=== PATIENT | female | born 1935 | race Caucasian/White ===

== ENCOUNTER 2017-09-01 18:17 | Emergency (ER) | payer MEDICARE, OTHER ==
[2017-09-01 18:31] VITALS: BP 134/46
[2017-09-01] MEDS ORDERED: OXYCODONE HCL IR 5 MG TABLET PO ONE (19:01)
[2017-09-01] MEDS ORDERED: DIPH/PERTUSS(ACELL)/TETANUS VAC/PF 0.5 ML SYR (>=10YO) IM ONE (19:10)
[2017-09-01] MEDS ORDERED: ACETAMINOPHEN 325 MG TABLET PO ONE (19:10)
--- NOTE | 2017-09-01 19:15 | RADIOLOGY REPORT (SQ) ---
EXAM DESCRIPTION: ELBOW RIGHT OVER 2 VIEWS COMPLETED DATE/TIME: 09/01/2017 6:57 pm REASON FOR STUDY: fall COMPARISON: None. NUMBER OF VIEWS: Three views TECHNIQUE: AP, lateral, and oblique radiographic images acquired of the right elbow. LIMITATIONS: None. FINDINGS: MINERALIZATION: Normal. BONES: There is a comminuted supracondylar fracture of the distal humerus with some overriding of the fracture fragments. JOINT: Joint effusion is identified. SOFT TISSUES: Soft tissue swelling is identified. OTHER: No other significant finding. IMPRESSION: Comminuted supracondylar fracture of the distal humerus. TECHNICAL DOCUMENTATION: JOB ID: [id number] [employer]- All Rights Reserved
--- NOTE | 2017-09-01 19:16 | ER Document Report ---
ED General - General Chief Complaint: Arm Injury Stated Complaint: FALL/RIGHT ARM INJURY Time Seen by Provider: 09/01/17 18:21 Notes: Patient is an 82-year-old female who presents after a mechanical fall off of a stool. She landed onto her right elbow and developed immediate, severe, throbbing pain to the affected area. Any attempt at moving worsens the pain. She has not tried nothing for improvement of the pain but states when she sits still it does not hurt as badly. She has no history of prior injury to this extremity. She denies hitting her head or neck today. Denies any additional injuries or areas of complaint. She does arrive by EMS. She has not seen her primary care doctor regarding today's concerns. TRAVEL OUTSIDE OF THE [place] IN LAST 30 DAYS: No - Related Data Allergies/Adverse Reactions: amoxicillin [From Augmentin] Allergy (Verified 09/01/17 18:25) clavulanic acid [From Augmentin] Allergy (Verified 09/01/17 18:25) hydrocodone bitartrate [From Vicodin] Allergy (Verified 09/01/17 18:25) shellfish derived Allergy (Verified 09/01/17 18:25) Past Medical History - General Information source: Patient - Social History Smoking Status: Never Smoker Chew tobacco use (# tins/day): No Frequency of alcohol use: None Drug Abuse: None Lives with: Family Family History: Reviewed & Not Pertinent Patient has suicidal ideation: No Patient has homicidal ideation: No - Past Medical History Cardiac Medical History: Reports: Hx Hypercholesterolemia, Hx Hypertension Renal/ Medical History: Denies: Hx Peritoneal Dialysis Musculoskeltal Medical History: Reports Hx Arthritis Past Surgical History: Reports: Hx Cholecystectomy, Hx Hysterectomy, Hx Orthopedic Surgery - left tkr, right shoulder, feet, spinal fusion, Hx Tonsillectomy, Hx Tubal Ligation, Hx Vascular Surgery - cataract - Immunizations Hx Diphtheria, Pertussis, Tetanus Vaccination: Yes Review of Systems - Review of Systems Notes: Constitutional: Negative for fever. Eyes: Negative for visual changes. ENT: Negative for facial injury Cardiovascular: Negative for chest injury. Respiratory: Negative for shortness of breath. Gastrointestinal: Negative for abdominal injury. Genitourinary: Negative for genital injury Musculoskeletal: Positive right elbow injury Skin: Negative for laceration/abrasions. Neurological: Negative for head injury. Physical Exam - Vital signs Vitals: Temp Pulse Resp BP Pulse Ox 97.7 F 75 18 134/46 H 95 09/01/17 18:20 09/01/17 18:20 09/01/17 18:20 09/01/17 18:20 09/01/17 18:20 Interpretation: Normal Notes: PHYSICAL EXAMINATION: GENERAL: Well-appearing, no acute distress. HEAD: Atraumatic, normocephalic. EYES: Pupils equal round and reactive to light, extraocular movements intact, sclera anicteric, conjunctiva are normal. ENT: nares patent, no oral pharyngeal trauma. No hemotympanum, no Zapata's sign , no raccoon eyes. NECK: No midline cervical spine tenderness. Patient able to move their head to 45 bilaterally without any discomfort. LUNGS: Breath sounds clear to auscultation bilaterally and equal. No wheezes rales or rhonchi. HEART: Regular rate and rhythm without murmurs. CHEST WALL: No ecchymosis over the chest wall. ABDOMEN: Soft, nontender, normoactive bowel sounds. No guarding, no rebound. No abdominal bruising EXTREMITIES: Swelling and apparent deformity just above the level of the right elbow. Unable to perform range of motion with the right proximal upper extremity. Full breaker hand strength bilaterally. RMU motor and sensory distribution is intact bilaterally. BACK: No midline spinal tenderness, step-offs, or deformities. NEUROLOGICAL: Face symmetric. Tongue protrudes midline. Extraocular motions intact. Pupils are 2 mm and equally reactive. Normal speech, normal gait. 5 out of 5 strength in both the distal and proximal upper and lower extremities bilaterally. Sensation is grossly intact throughout. Finger to nose testing normal. Pronator drift normal. PSYCH: Normal mood, normal affect. SKIN: Warm, Dry, normal turgor, skin avulsion to the right posterior elbow Course - Re-evaluation Re-evalutation: 09/01/17 19:12 Patient presents after a mechanical fall off of a stool landing on her right arm and sustaining a distal humeral fracture that is comminuted minimally displaced. RMU motor and sensory distribution is intact in the bilateral upper extremities. Full breaker hand strength bilaterally. 2+ radial and ulnar pulse on the right. Patient is very clear that she did not hit her head or neck today. She denies any additional trauma or pain to any other location of her body. The remainder of her examination is otherwise unremarkable. She is in place in a posterior long-arm splint for stabilization in a sling. Tylenol has been recommended for pain control. A small amount of oxycodone tablets have been prescribed as needed for pain that is not controlled by Tylenol. Her tetanus has been updated due to a small skin avulsion on the posterior right elbow. At this time will discharge with return precautions and follow-up recommendations. Verbal discharge instructions given a the bedside and opportunity for questions given. Medication warnings reviewed. Patient is in agreement with this plan and has verbalized understanding of return precautions and the need for orthopedic surgery follow-up in the next 24-72 hours. - Vital Signs Vital signs: Temp Pulse Resp BP Pulse Ox 97.7 F 75 18 134/46 H 95 09/01/17 18:20 09/01/17 18:20 09/01/17 18:20 09/01/17 18:20 09/01/17 18:20 - Diagnostic Test Radiology reviewed: Image reviewed, Reports reviewed Radiology results interpreted by me: 09/01/17 19:14 Right elbow x-ray: Distal humeral comminuted fracture with moderate displacement Discharge - Discharge Clinical Impression: Skin avulsion Fracture of distal end of right humerus Qualifiers: Encounter type: initial encounter Fracture type: closed Fracture morphology: unspecified fracture morphology Qualified Code(s): S42.401A - Unspecified fracture of lower end of right humerus, initial encounter for closed fracture Fall Qualifiers: Encounter type: initial encounter Qualified Code(s): W19.XXXA - Unspecified fall, initial encounter Condition: Stable Disposition: HOME, SELF-CARE Additional Instructions: You broke the distal end of your humerus. You have been placed in a splint that she need to keep on until you follow-up with orthopedic surgery. Please do so within the next 1 week. For your pain: Take acetaminophen 1000 mg every 6 hours as needed for pain. If this does not control your pain you may take 2.5 -5 mg of oxycodone every 4 hours as needed. Please be very careful about using the oxycodone and only use this for severe pain. If you do end up needing oxycodone, please be sure to take a laxative such as senna or MiraLAX Prescriptions: Oxycodone HCl [Oxycontin Ir 5 Mg Tablet] 0.5 - 1 tab PO Q4H PRN #6 tablet PRN Reason: For Pain Referrals: Basia STILL MD [Primary Care Provider] - Follow up as needed YASMIN TURNER MD [ACTIVE STAFF] - Follow up in 3-5 days
== END 2017-09-01 20:37 | disposition home or self-care (01) ==
LOC: ER 18:17
PROC: 2W38X1Z Immobilization of Right Upper Extremity using Splint (ICD-10-PCS; principal; 2017-09-01)
DX: S42.401A Unspecified fracture of lower end of right humerus, initial encounter for closed fracture (principal); S41.101A Unspecified open wound of right upper arm, initial encounter; W07.XXXA Fall from chair, initial encounter
CPT/HCPCS: 99283; 73080; 29105; A9270

== ENCOUNTER 2017-09-17 05:54 | Inpatient (IN) | payer MEDICARE ==
[2017-09-16 12:27] LABS: ABSOLUTE EOSINOPHILS # (AUTO) 0.3 10^3/uL (0.0-0.6); ABSOLUTE LYMPHOCYTES (AUTO) 1.2 10^3/uL (0.5-4.7); ABSOLUTE MONOCYTES (AUTO) 1.3 10^3/uL (0.1-1.4); ABSOLUTE NEUT (AUTO) 5.5 10^3/uL (1.7-8.2); BASOPHILS % (AUTO) 0.6 % (0-2); EOSINOPHILS % (AUTO) 3.4 % (0-6); HEMATOCRIT 37.5 % (36.0-47.0); HEMOGLOBIN 13.1 g/dL (12.0-15.5); HGB HCT DIFFERENCE 1.8; LYMPHOCYTES % (AUTO) 14.4 % (13-45); MEAN CORPUSCULAR HEMOGLOBIN 29.4 pg (27.0-33.4); MEAN CORPUSCULAR HGB CONC 34.9 g/dL (32.0-36.0); MEAN CORPUSCULAR VOLUME 84 fl (80-97); MONOCYTES % (AUTO) 15.5 % (3-13); RED BLOOD COUNT 4.44 10^6/uL (3.72-5.28); RED CELL DISTRIBUTION WIDTH 14.1 % (11.5-14.0); SEGMENTED NEUTROPHILS % (AUTO) 66.1 % (42-78); WHITE BLOOD COUNT 8.4 10^3/uL (4.0-10.5)
[2017-09-16 12:27] LABS: AMORPHOUS SEDIMENT,URINE TRACE /HPF; APPEARANCE,URINE SLIGHTLY-CLOUDY; BILIRUBIN,URINE NEGATIVE (NEGATIVE); CALCIUM OXALATE CRYSTALS,URINE TOO NUMEROUS TO CNT /HPF; GLUCOSE, URINE NEGATIVE (NEGATIVE); KETONES,URINE NEGATIVE (NEGATIVE); LEUKOCYTE ESTERASE,URINE TRACE (NEGATIVE); NITRITE,URINE NEGATIVE (NEGATIVE); PROTEIN,URINE NEGATIVE (NEGATIVE); URINE SPECIFIC GRAVITY 1.029; UROBILINOGEN,URINE NEGATIVE mg/dL (<2.0)
[2017-09-16 12:53] LABS: ANION GAP 11 (5-19); BLOOD UREA NITROGEN 17 mg/dL (7-20); CALCIUM 9.6 mg/dL (8.4-10.2); CARBON DIOXIDE 29 mmol/L (22-30); CHLORIDE 101 mmol/L (98-107); CREATININE RESULT 0.66 mg/dL (0.52-1.25); GLUCOSE 80 mg/dL (75-110); POTASSIUM 4.8 mmol/L (3.6-5.0)
--- NOTE | 2017-09-16 13:15 | RADIOLOGY REPORT (SQ) ---
EXAM DESCRIPTION: CHEST PA/LATERAL COMPLETED DATE/TIME: 09/16/2017 1:00 pm REASON FOR STUDY: PRE-OP COMPARISON: Three-way abdomen series [id number] EXAM PARAMETERS: NUMBER OF VIEWS: two views TECHNIQUE: Digital Frontal and Lateral radiographic views of the chest acquired. RADIATION DOSE: NA LIMITATIONS: none FINDINGS: LUNGS AND PLEURA: Bandlike scarring or atelectasis at the right lung base. Lungs are othe rwise well inflated and clear. MEDIASTINUM AND HILAR STRUCTURES: No masses or contour abnormalities. HEART AND VASCULAR STRUCTURES: Heart normal size. No evidence for failure. BONES: Osteoporotic. 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 Advanced osteoarthritis left shoulder. Lumbar kyphoplast y at the bottom edge of the field of view. HARDWARE: Right shoulder replacement. Clips right upper quadrant post cholecystectomy. OTHER: No other significant finding. IMPRESSION: Bandlike atelectasis or scarring right lung base TECHNICAL DOCUMENTATION: JOB ID: [id number] [employer]- All Rights Reserved
[2017-09-16 14:09] LABS: PROTHROMBIN TIME 12.9 SEC (11.4-15.4)
[2017-09-16 14:10] LABS: PARTIAL THROMBOPLASTIN TIME 33.3 SEC (23.5-35.8)
--- NOTE | 2017-09-16 14:10 | EKG REPORT ---
SEVERITY:- BORDERLINE ECG - SINUS RHYTHM PROBABLE LEFT ATRIAL ABNORMALITY : Confirmed by: Ozzie Anguiano MD 16-Sep-2017 14:10:02
[~2017-09-17 05:54] MED LIST: CEFAZOLIN 2 GM/D5W RTU 2 GM/50 ML RTUPB IV PRN; LACTATED RINGERS 1000 ML IV PRN; LIDOCAINE 0.5% INJ-PF (5 MG/ML) 50 ML SDV SUBCUT PRN
[2017-09-17] MEDS ORDERED: FENTANYL CITRATE INJ/PF 100 MCG/2 ML AMPUL ONE ×2 (07:13)
[2017-09-17] MEDS ORDERED: HYDROMORPHONE HCL INJ/PF 2 MG/ML AMPULE ONE (07:13)
[2017-09-17] MEDS ORDERED: MIDAZOLAM 2 MG/2 ML INJ ONE (07:14)
[2017-09-17] MEDS ORDERED: ACETAMINOPHEN 0 ML IV ONE (07:14)
[2017-09-17] MEDS ORDERED: PROPOFOL INJ 200 MG/20 ML VIAL IV ONE ×3 (07:14→10:09)
[2017-09-17] MEDS ORDERED: IBUPROFEN INJ 800 MG/8 ML VIAL IV ONE (07:14)
[2017-09-17] MEDS ORDERED: CLINDAMYCIN 600 MG/D5W RTU 600 MG/50 ML RTUPB IV ONE (07:23)
[2017-09-17] MEDS ORDERED: ALBUTEROL SULFATE 0.083% NEB 2.5 MG/3 ML AMPUL NEB ONE (07:26)
[2017-09-17] MEDS ORDERED: ROPIVACAINE HCL 0.5% INJ/PF (5 MG/1 ML) 30 ML SDV ONE ×2 (07:31→08:11)
[2017-09-17] MEDS ORDERED: LIDOCAINE 2% INJ (20 MG/ML) 20 ML MDV ONE (07:31)
[2017-09-17] MEDS ORDERED: LIDOCAINE 1%/EPINEPHRINE INJ 20 ML VIAL ONE (07:31)
[2017-09-17] MEDS ORDERED: MEPERIDINE HCL/PF INJ 25 MG/1 ML DISP.SYRIN IV PRN (08:44)
[2017-09-17] MEDS ORDERED: MORPHINE SULFATE 10 MG/ML INJ IV PRN (08:44)
[2017-09-17] MEDS ORDERED: FENTANYL CITRATE INJ/PF 100 MCG/2 ML AMPUL IV PRN ×2 (08:44)
--- NOTE | 2017-09-17 11:57 | Operative Report ---
Operative Report DATE OF SURGERY: 09/17/17 PREOPERATIVE DIAGNOSIS: Right Intra-articular Distal Humerus Fracture POSTOPERATIVE DIAGNOSIS: Right Intra-articular Distal Humerus Fracture OPERATION: ORIF Right Intra-articular Distal Humerus Fracture SURGEON: IVANNA RBOWN ANESTHESIA: GA COMPLICATIONS: None ESTIMATED BLOOD LOSS: 200cc PROCEDURE: Indication for above procedure: 82-year-old female who sustained a fall onto her right elbow. Patient was seen in the emergency room where x-rays demonstrated a intra-articular fracture patient was placed in a splint. She subsequently was sent to [facility] and a CT scan order demonstrating comminuted intra-articular distal humerus fracture. We discussed treatment options including discussion with the family which included operative versus nonoperative intervention. Risks and benefits were explained to the patient and family risks including neurovascular risk, postoperative pain , postoperative stiffness, nonunion, hardware failure and any unforeseen complication patient verbalized understanding consented for the procedure. Procedure In Detail: Patient was seen and evaluated in the preoperative holding area. The RIGHT upper extremity was initialized and marked. Patient received 600 mg of clindamycin IV for bacterial prophylaxis. Patient was seen and evaluated by anesthesia and a right regional block performed. Patient was taken back to the operative room where transferred to the operative table and placed under general anesthesia. Once they were adequately anesthetized a surgical team debriefing was performed ensuring all instrumentation was available, the surgical procedure was discussed with possible concerns reviewed. The upper extremity was prepped with ChloraPrep and draped in a sterile fashion. A timeout was done identifying correct patient, procedure and extremity everyone in attendance agree with this and verbalized no concerns. The a sterile tourniquet was placed in the extremity was exsanguinated the tourniquet was inflated to 250 mmHg. Longitudinal skin incision was made with a curved around the olecranon medially. Blunt dissection was performed proximally identifying the ulnar nerve as it exited the triceps fascia. The ulnar nerve was then neurolysed to the level of Machuca's ligaments. A branch of the medial antebrachial cutaneous nerve was identified and retracted. The ulnar nerve was released including the FCU aponeurosis once freed of all overlying soft tissue a vessel loop was placed around the ulnar nerve. Vasculature of the ulnar nerve remained in continuity proximally and the distal branches were then coagulated with cautery to allow transposition of the ulnar nerve and a subcutaneous pocket anteriorly. Once this was complete a mann-tricipital approach was performed to expose the medial and lateral fracture fragments. The radial nerve laterally was identified just anterior to the lateral intermuscular septum but further neuro lysis was not performed. There was intervening healing of the fracture with fibrous tissue. The fibrous tissue was carefully excised and the early healing between the fracture fragments was removed until good cancellus bone was encountered. A small portion of soft tissue over the lateral epicondyle and medial epicondyles was elevated to allow placement of parallel plates. There was significant comminution at the level of the olecranon fossa and the intervening bone was excised. The fracture fragments were freed of soft tissue. The fracture fragments were then freed reduced under direct visualization and held together with 3 0.62 K wires. C-arm fluoroscopy was obtained confirming acceptable articular reduction and samaritan of alignment. I then placed a harshly threaded 4.0 mm cannulated screw perpendicular to the fracture was provided interfragmentary compression. Once I had the distal 2 fracture fragments secured I proceeded with fixation to the humeral shaft. Due to the patient's combination the shaft was reduced to the articular fragments but compressed to allow for better bone healing. I secured the distal segment to the proximal segment with an oblique K wire. A Yamel lateral plate was then placed and secured proximally and distally with K wires and a reduction tenaculum. C-arm fluoroscopy was obtained confirming appropriate placement of my lateral plate. It was then first secured distally with a 3.5 mm compression screw bringing the plate successfully down to bone. The additional distal holes were then secured with locking screws. During drilling I confirmed the screws were in an anterior direction to avoid impingement at the olecranon fossa. I then turned my attention to fixation proximally. The plate was secured proximally with reduction tenaculum ensuring that it was freed of the adjacent radial nerve to avoid impingement. The radial nerve was protected during fixation of the plate proximally. I then fixated the plate with 3.5 mm cortex screws and completed fixation with the appropriate size locking screw. C-arm fluoroscopy was then obtained AP and lateral projections demonstrated appropriate placement of my plate with reduction of the articular surface with some compression of the articular distal fragments to the proximal humeral shaft. I then turned my attention to the medial aspect. A Yamel medial plate was then placed and secured proximally just with K wires and a reduction tenaculum. The ulnar nerve was protected during placement of the plate. C-arm fluoroscopy confirmed appropriate placement of my plate a 3.5 millimeter screw was then placed distally to secure the plate down to bone. Additional locking screws were then placed distally avoiding trajectory within the olecranon fossa under direct visualization and anteriorly through the articular surface. I then completed fixation proximally securing the plate with a reduction tenaculum and a bicortical 3.5 millimeter screw was placed which actually came through the oblong hole laterally. An additional cortical screw was placed proximally and I completed fixation with 2 additional locking screws. There was excellent stability of the fracture. Patient had full passive flexion with extension to 15 without evidence of impingement at the olecranon fossa. No crepitus with range of motion was appreciated. Final C- arm fluoroscopy was obtained demonstrating no evidence of intra-articular screw penetration with reduction of the fracture in acceptable position. The tourniquet was then deflated. Any peripheral bleeding was then coagulated with cautery. The wound was copiously irrigated with normal saline. The ulnar nerve was transposed anteriorly and secured in a subcutaneous sling with 3-0 Monocryl suture. The triceps fascia to the lateral intramuscular septum was secured with interrupted 0 Vicryl suture avoiding compression of the radial nerve. The wound was once again irrigated with normal saline. Subcutaneous tissues were closed with interrupted 3-0 Monocryl suture. Skin was closed with sonny. Was dressed with Acticoat patient was placed in a posterior plaster splint with the elbow at 60 of flexion. Sponge counts, instrument counts, needle counts counts were correct. Patient was then awoken from anesthesia. Transferred from the operating room table to the operating room stretcher. There was no intraoperative complications patient tolerated procedure well stable to PACU. Postoperative plan: Patient will follow-up the office in 2 weeks at which point we will obtain radiographs and patient will be set up for occupational therapy to begin gentle range of motion and be fitted 30 thermoplastic posterior splint for protection.
[2017-09-17] MEDS ORDERED: ONDANSETRON 4 MG TAB.RAPDIS PO PRN (12:06)
[2017-09-17] MEDS ORDERED: PROMETHAZINE HCL 25 MG TABLET PO PRN (12:06)
[2017-09-17] MEDS: CLINDAMYCIN 600 MG/D5W RTU 600 MG/50 ML RTUPB IV SCH ×2 (14:41→21:33)
[2017-09-17] MEDS ORDERED: LIDOCAINE 2% INJ-PF (20 MG/ML) 10 ML AMPUL ONE (15:40)
[2017-09-17] MEDS ORDERED: ONDANSETRON HCL INJ/PF 4 MG/2 ML SDV ONE (15:40)
--- NOTE | 2017-09-17 16:58 | RADIOLOGY REPORT (SQ) ---
EXAM DESCRIPTION: NO CHG FLUORO; ELBOW RIGHT OVER 2 VIEWS COMPLETED DATE/TIME: 09/17/2017 3:56 pm REASON FOR STUDY: ORIF RT ELBOW ASSISTED WITH FLUORO IN OR COMPARISON: 09/01/2017 FLUOROSCOPY TIME: 1.4 minutes 7 Images saved to PACS LIMITATIONS: None. PROCEDURE: Open reduction internal fixation of distal humeral fracture. FINDINGS: Multiple no images document placement of a compression plate bilaterally on distal humerus with multiple screws. IMPRESSION: ORIF distal humeral fracture. Refer to operative report for further detail. COMMENT: PQRS 6045F: Fluoroscopy time of the procedure is documented in the report. TECHNICAL DOCUMENTATION: JOB ID: [id number] [employer]- All Rights Reserved
--- NOTE | 2017-09-17 16:58 | RADIOLOGY REPORT (SQ) ---
EXAM DESCRIPTION: NO CHG FLUORO; ELBOW RIGHT OVER 2 VIEWS COMPLETED DATE/TIME: 09/17/2017 3:56 pm REASON FOR STUDY: ORIF RT ELBOW ASSISTED WITH FLUORO IN OR COMPARISON: 09/01/2017 FLUOROSCOPY TIME: 1.4 minutes 7 Images saved to PACS LIMITATIONS: None. PROCEDURE: Open reduction internal fixation of distal humeral fracture. FINDINGS: Multiple no images document placement of a compression plate bilaterally on distal humerus with multiple screws. IMPRESSION: ORIF distal humeral fracture. Refer to operative report for further detail. COMMENT: PQRS 6045F: Fluoroscopy time of the procedure is documented in the report. TECHNICAL DOCUMENTATION: JOB ID: [id number] [employer]- All Rights Reserved
[2017-09-17] MEDS: MORPHINE SULFATE 10 MG/ML INJ IV PRN ×2 (17:01→21:08)
[2017-09-17] MEDS ORDERED: IBUPROFEN INJ 800 MG/8 ML VIAL IV PRN (17:51)
[2017-09-17] MEDS: TRAMADOL HCL 50 MG TABLET PO PRN (18:23)
[2017-09-17] MEDS: RIVAROXABAN 10 MG TABLET PO SCH (21:33)
[2017-09-18] MEDS: CLINDAMYCIN 600 MG/D5W RTU 600 MG/50 ML RTUPB IV SCH (05:16)
[2017-09-18] MEDS: TRAMADOL HCL 50 MG TABLET PO PRN ×2 (06:35→17:47)
[2017-09-18 07:05] LABS: HEMATOCRIT 29.1 % (36.0-47.0); HGB HCT DIFFERENCE 0.9; MEAN CORPUSCULAR HEMOGLOBIN 29.1 pg (27.0-33.4); MEAN CORPUSCULAR HGB CONC 34.5 g/dL (32.0-36.0); MEAN CORPUSCULAR VOLUME 84 fl (80-97); RED BLOOD COUNT 3.44 10^6/uL (3.72-5.28); RED CELL DISTRIBUTION WIDTH 14.1 % (11.5-14.0); WHITE BLOOD COUNT 13.6 10^3/uL (4.0-10.5)
--- NOTE | 2017-09-18 08:41 | PDOC PROGRESS REPORT ---
Subjective Progress Note for:: 09/18/17 Subjective:: 82-year-old white female one day status post open reduction internal fixation of right distal humerus fracture. Patient is lying in hospital bed and states that her pain was not well-controlled last night. She requested her as needed morphine be added back and this was agreed upon. No other complaints otherwise per Physical Exam Vital Signs: Temp Pulse Resp BP Pulse Ox 36.8 C 90 18 128/60 H 97 09/18/17 04:02 09/18/17 04:02 09/18/17 04:02 09/18/17 04:02 09/18/17 04:02 Intake & Output 09/17/17 09/18/17 09/19/17 06:59 06:59 06:59 Intake Total 0 2220 Output Total 1200 Balance 0 1020 Weight 54.3 kg General appearance: PRESENT: no acute distress, well-developed, well-nourished Head exam: PRESENT: atraumatic, normocephalic Pulses: PRESENT: normal radial pulses, normal dorsalis pedis pul, +2 pedal pulses bilateral Vascular exam: PRESENT: normal capillary refill Additional comments: Patient's right upper extremity is in long-arm splint elevated on 2 pillows. Her postoperative compression dressing is in place and this is clean dry and intact. She has brisk capillary refill to fingers of bilateral upper extremities as well as posterior radial pulses. She has minimal manual edema, her sensory motor functions are intact and her distal neurovascular exam is intact. She has very limited range of motion of the right upper extremity due to pain on initiation of motion. Additional comments: As noted patient has limited range of motion of the right upper extremity due to pain on initiation of motion. I believe it would be helpful for occupational therapy to work with patient on better mobilization and strength of the right upper extremity. Neurological exam: PRESENT: alert, awake, oriented to person, oriented to place , oriented to time, oriented to situation, CN II-XII grossly intact. ABSENT: motor sensory deficit Psychiatric exam: PRESENT: appropriate affect, normal mood. ABSENT: homicidal ideation, suicidal ideation Skin exam: PRESENT: dry, intact, warm. ABSENT: cyanosis, rash Results Laboratory Results: 09/18/17 06:30 09/16/17 11:43 09/18/17 06:30 WBC 13.6 H RBC 3.44 L Hgb 10.0 L D Hct 29.1 L MCV 84 MCH 29.1 MCHC 34.5 RDW 14.1 H Plt Count 490 H Impressions: Chest X-Ray 09/16/17 12:34 IMPRESSION: Bandlike atelectasis or scarring right lung base Elbow X-Ray 09/17/17 00:00 IMPRESSION: ORIF distal humeral fracture. Refer to operative report for further detail. Fluoroscopy 09/17/17 00:00 IMPRESSION: ORIF distal humeral fracture. Refer to operative report for further detail. Assessment & Plan - Diagnosis (1) Humerus distal fracture Qualifiers: Encounter type: subsequent encounter Fracture type: closed Fracture morphology: other fracture Laterality: right Is this a current diagnosis for this admission?: Yes - Plan Summary Plan Summary: 82-year-old white female one day status post open reduction internal fixation of distal humeral fracture. Patient is having trouble with pain control and it was discussed and decided the patient's morphine would be restarted as needed for pain. She also continue IV calor and tramadol. Patient seemed agreeable to this plan and hopeful that it would facilitate better pain relief. She maintains limited strength range of motion of the right upper extremity due to pain with initiation of motion. Hopefully with better pain control she will increase strength and range of motion of the right upper extremity and possibly a consult from occupational therapy would be beneficial as well. She will likely be discharged to a shelter facility later in the week.
[2017-09-18] MEDS ORDERED: DOCUSATE SODIUM 100 MG/10 ML UDC PO SCH (10:00)
[2017-09-18] MEDS: DOCUSATE SODIUM 100 MG CAPSULE PO SCH (10:09)
[2017-09-18] MEDS: RIVAROXABAN 10 MG TABLET PO SCH (22:12)
--- NOTE | 2017-09-19 07:09 | PDOC PROGRESS REPORT ---
Subjective Progress Note for:: 09/19/17 Subjective:: 82-year-old white female 2 days status post open reduction internal fixation of distal right humerus fracture. Patient reports she is much more comfortable this morning and her demeanor is much different. She is calm and has no complaints of pain. Physical Exam Vital Signs: Temp Pulse Resp BP Pulse Ox 36.7 C 80 16 133/65 H 95 09/19/17 04:08 09/19/17 04:08 09/19/17 04:08 09/19/17 04:08 09/19/17 04:08 Intake & Output 09/18/17 09/19/17 09/20/17 06:59 06:59 06:59 Intake Total 2220 790 Output Total 1200 Balance 1020 790 General appearance: PRESENT: no acute distress, well-developed, well-nourished Head exam: PRESENT: atraumatic, normocephalic Pulses: PRESENT: normal dorsalis pedis pul, +2 pedal pulses bilateral Vascular exam: PRESENT: normal capillary refill Additional comments: Patient's right upper extremity remains immobilized in a long-arm splint. Patient exhibits increased strength and range of motion of the right upper extremity when compared to yesterday morning. She states it is not as painful to move today. She has brisk capillary refill to fingers of bilateral upper extremities and her distal neurovascular exam is intact. Musculoskeletal exam: PRESENT: ambulatory Additional comments: As stated previously I believe occupational therapy would be beneficial for the patient to increase strength and range of motion of the right upper extremity. She has not yet seen services for occupational therapy. Neurological exam: PRESENT: alert, awake, oriented to person, oriented to place , oriented to time, oriented to situation, CN II-XII grossly intact. ABSENT: motor sensory deficit Additional comments: Patient did question what day it was, and when she was informed that it was she did not seem confused. Psychiatric exam: PRESENT: appropriate affect, normal mood. ABSENT: homicidal ideation, suicidal ideation Skin exam: PRESENT: dry, intact, warm. ABSENT: cyanosis, rash Results Laboratory Results: 09/18/17 06:30 09/16/17 11:43 09/18/17 06:30 WBC 13.6 H RBC 3.44 L Hgb 10.0 L D Hct 29.1 L MCV 84 MCH 29.1 MCHC 34.5 RDW 14.1 H Plt Count 490 H Impressions: Chest X-Ray 09/16/17 12:34 IMPRESSION: Bandlike atelectasis or scarring right lung base Elbow X-Ray 09/17/17 00:00 IMPRESSION: ORIF distal humeral fracture. Refer to operative report for further detail. Fluoroscopy 09/17/17 00:00 IMPRESSION: ORIF distal humeral fracture. Refer to operative report for further detail. Assessment & Plan - Diagnosis (1) Humerus distal fracture Qualifiers: Encounter type: subsequent encounter Fracture type: closed Fracture morphology: other fracture Laterality: right Is this a current diagnosis for this admission?: Yes - Plan Summary Plan Summary: 82-year-old white female today status post open reduction internal fixation for right distal humerus fracture. Patient's pain is much better controlled and is very pleasant when answering questions this morning this was not the case yesterday as she was experiencing much greater pain. We will continue her pain regiment as is with IV calor, tramadol and morphine as needed for pain. I do believe patient would benefit from occupational therapy services to improve strength and range of motion of the right upper extremity. She will be seen by Dr. verma on September 20 and arrangements for discharge to a longterm facility will be made at that time.
[2017-09-19] MEDS: DOCUSATE SODIUM 100 MG CAPSULE PO SCH (10:02)
[2017-09-19] MEDS ORDERED: ONDANSETRON 4 MG TAB.RAPDIS PO PRN (10:30)
[2017-09-19] MEDS: TRAMADOL HCL 50 MG TABLET PO PRN ×2 (13:20→22:00)
[2017-09-19] MEDS: RIVAROXABAN 10 MG TABLET PO SCH (22:00)
--- NOTE | 2017-09-20 07:35 | PDOC PROGRESS REPORT ---
Subjective Progress Note for:: 09/20/17 Subjective:: Patient seen and evaluated this morning. Sitting at bedside chair without discomfort. Denies numbness or tingling. Denies chest pain or shortness of breath. Physical Exam Vital Signs: Temp Pulse Resp BP Pulse Ox 98.4 F 84 18 142/60 H 97 09/19/17 23:32 09/19/17 23:32 09/19/17 23:32 09/19/17 23:32 09/19/17 23:32 Intake & Output 09/19/17 09/20/17 09/21/17 06:59 06:59 06:59 Intake Total 790 820 Balance 790 820 Weight 58.2 kg Musculoskeletal exam: PRESENT: other - Right upper extremity: Splint loosened. Patient has notable swelling of her hand. No sensory deficits. Intact IP/MP joint flexion. EPL/FPL intact. Results Laboratory Results: 09/18/17 06:30 09/16/17 11:43 Impressions: Chest X-Ray 09/16/17 12:34 IMPRESSION: Bandlike atelectasis or scarring right lung base Elbow X-Ray 09/17/17 00:00 IMPRESSION: ORIF distal humeral fracture. Refer to operative report for further detail. Fluoroscopy 09/17/17 00:00 IMPRESSION: ORIF distal humeral fracture. Refer to operative report for further detail. Assessment & Plan - Diagnosis (1) Humerus distal fracture Qualifiers: Encounter type: subsequent encounter Fracture type: closed Fracture morphology: other fracture Laterality: right Is this a current diagnosis for this admission?: Yes Plan: Status post ORIF right intra-articular distal humerus fracture Patient's pain is currently controlled however given her multiple comorbidities and independent living situation I feel she would be better served with custodial facility. In the meantime patient will begin occupational therapy we will also consult physical therapy to get her up and out of bed. Patient is stable for discharge once custodial facility bed available
[2017-09-20] MEDS: DOCUSATE SODIUM 100 MG CAPSULE PO SCH (11:07)
[2017-09-20] MEDS: TRAMADOL HCL 50 MG TABLET PO PRN (11:07)
[2017-09-20] MEDS ORDERED: DIPHENHYDRAMINE HCL 25 MG CAPSULE PO ONE (16:00)
[2017-09-20] MEDS: RIVAROXABAN 10 MG TABLET PO SCH (21:28)
[2017-09-21] MEDS: TRAMADOL HCL 50 MG TABLET PO PRN ×2 (02:57→10:23)
[2017-09-21] MEDS: DOCUSATE SODIUM 100 MG CAPSULE PO SCH (09:14)
[2017-09-21] MEDS ORDERED: POLYETHYLENE GLYCOL 3350 POWDER 17 GM/1 PACKET PO PRN (21:10)
[2017-09-21] MEDS: RIVAROXABAN 10 MG TABLET PO SCH (22:04)
[2017-09-22] MEDS: TRAMADOL HCL 50 MG TABLET PO PRN ×2 (08:51→23:32)
[2017-09-22] MEDS: DOCUSATE SODIUM 100 MG CAPSULE PO SCH (09:28)
[2017-09-22] MEDS ORDERED: MAGNESIUM CITRATE 296 ML BOTTLE PO ONE (14:00)
[2017-09-22] MEDS: RIVAROXABAN 10 MG TABLET PO SCH (21:21)
[2017-09-23] MEDS: TRAMADOL HCL 50 MG TABLET PO PRN (05:18)
--- NOTE | 2017-09-23 08:06 | PDOC PROGRESS REPORT ---
Subjective Subjective:: Patient seen and evaluated this morning. Sitting at bedside chair without discomfort. Denies numbness or tingling. Denies chest pain or shortness of breath. Physical Exam Vital Signs: Temp Pulse Resp BP Pulse Ox 98.0 F 71 16 140/59 H 95 09/23/17 07:35 09/23/17 07:35 09/23/17 07:35 09/23/17 07:35 09/23/17 07:35 Intake & Output 09/22/17 09/23/17 09/24/17 06:59 06:59 06:59 Intake Total 878 460 Balance 878 460 Weight 57.8 kg Musculoskeletal exam: PRESENT: other - Right UE: Splint intact. Significantly improved hand swelling. No sensory deficits. IP/MP flexion/extension intact. EPL/FPL intact Results Laboratory Results: 09/18/17 06:30 09/16/17 11:43 Impressions: Chest X-Ray 09/16/17 12:34 IMPRESSION: Bandlike atelectasis or scarring right lung base Elbow X-Ray 09/17/17 00:00 IMPRESSION: ORIF distal humeral fracture. Refer to operative report for further detail. Fluoroscopy 09/17/17 00:00 IMPRESSION: ORIF distal humeral fracture. Refer to operative report for further detail. Assessment & Plan - Diagnosis (1) Humerus distal fracture Qualifiers: Encounter type: subsequent encounter Fracture type: closed Fracture morphology: other fracture Laterality: right Is this a current diagnosis for this admission?: Yes Plan: Status post ORIF right intra-articular distal humerus fracture Patient does not qualify for SNF thus patient will be d/c'd home today w/ home health. Nucynta for pain control Xarelto as inpt. FU 10-14 days
[2017-09-23] MEDS: DOCUSATE SODIUM 100 MG CAPSULE PO SCH (09:43)
[2017-09-23 12:25] VITALS: BP 135/53
--- NOTE | 2017-09-24 14:06 | PDOC DISCHARGE SUMMARY ---
General - Admit/Disc Date/PCP Admission Date/Primary Care Provider: BE STILL MD Discharge Date: 09/23/17 - Discharge Diagnosis (1) Humerus distal fracture Is this a current diagnosis for this admission?: Yes - Additional Information Resuscitation Status: Full Code Discharge Diet: As Tolerated Discharge Activity: No Lifting Over 10 Pounds, No Lifting/Push/Pulling Home Medications: Aspirin [Aspirin 81 mg Chewable Tablet] 1 tab PO DAILY 09/16/17 Calcium Carbonate [[id number]] 1 tab PO DAILY 09/16/17 Diphenhydramine HCl [Benadryl 25 mg Capsule] 1 cap PO QHS 09/16/17 Gabapentin [Neurontin] 1 tab PO BID 09/16/17 Krill/[place]-3/Dha/Epa/Lipids [Krill Oil 300 mg Softgel] 1 cap PO DAILY 09/16/17 L.acidoph,Paracasei, B.lactis [Probiotic] 1 cap PO DAILY 09/16/17 Metronidazole 1 dose TOP DAILY PRN 09/16/17 Naproxen 1 tab PO BID PRN 09/16/17 Povidone [Soothe Hydration] 1 drop OU QHS 09/16/17 Ranitidine HCl [Zantac] 1 tab PO DAILY 09/16/17 Wheat Dextrin [Benefiber] 1 dose PO NOON 09/16/17 Atorvastatin Calcium [Lipitor 10 mg Tablet] 1 tab PO DAILY 09/17/17 Ranitidine HCl 1 tab PO DAILY 09/17/17 Tapentadol HCl [Nucynta] 50 mg PO Q6 PRN #45 tablet 09/17/17 History of Present Illness Patient complains of: Right Elbow Fracture History of Present Illness: KELSY GILL is a 82 year old female 82-year-old female who sustained a fall while at home onto her right elbow. Patient was brought to the emergency room where x-rays demonstrated comminuted intra-articular distal humerus fracture. She subsequently follow-up in our office where CT scan was done confirming intra-articular nature and comminution of the fracture. At that point we discussed treatment options given the amount of displacement and involving articular surface recommended operative intervention. Risks and benefits were explained the patient and family verbalized understanding consented for the procedure. Hospital Course Hospital Course: On 09/17/17 patient underwent open reduction internal fixation right intra- articular distal humerus fracture. Patient tolerated procedure well. She was initially admitted for observation on 09/17/17. On postop day #1 patient was started on Xarelto for DVT prophylaxis. Pain was controlled at that time to have some residual nausea and discomfort. Given patient's immobility and poor ambulatory status secondary to chronic spine issues patient was not fit to return home independently. Thus patient received physical therapy throughout her hospital course once it was determined insurance would not pay for custodial facility plans were patient will be discharged home with home health. She continued to progress with PT. On 09/23/17 patient was deemed orthopedically medically stable for discharge to home with home health. Physical Exam Vital Signs: Temp Pulse Resp BP Pulse Ox 98.4 F 80 16 135/53 H 95 09/23/17 12:23 09/23/17 12:23 09/23/17 12:23 09/23/17 12:23 09/23/17 12:23 Intake & Output 09/23/17 09/24/17 09/25/17 06:59 06:59 06:59 Intake Total 460 Balance 460 General appearance: PRESENT: no acute distress, cooperative Eye exam: PRESENT: conjunctiva pink, EOMI, PERRLA. ABSENT: scleral icterus Mouth exam: PRESENT: moist, tongue midline Neck exam: PRESENT: full ROM. ABSENT: carotid bruit, JVD, lymphadenopathy, thyromegaly Respiratory exam: PRESENT: unlabored Pulses: PRESENT: normal radial pulses Vascular exam: PRESENT: normal capillary refill Musculoskeletal exam: PRESENT: other - Right upper extremity: Hand swelling has significantly improved. Patient has no sensory deficits. Intact IP/MP joint flexion/extension. EPL/FPL intact. Cap refill less than 2 seconds. Radial pulse 2+. No pain w/ Passive stretch. Compartments are soft and compressible. Neurological exam: PRESENT: alert, awake, oriented to person, oriented to place , oriented to time, oriented to situation, CN II-XII grossly intact. ABSENT: motor sensory deficit Psychiatric exam: PRESENT: appropriate affect, normal mood. ABSENT: homicidal ideation, suicidal ideation Results Laboratory Results: 09/18/17 06:30 09/16/17 11:43 Impressions: Chest X-Ray 09/16/17 12:34 IMPRESSION: Bandlike atelectasis or scarring right lung base Elbow X-Ray 09/17/17 00:00 IMPRESSION: ORIF distal humeral fracture. Refer to operative report for further detail. Fluoroscopy 09/17/17 00:00 IMPRESSION: ORIF distal humeral fracture. Refer to operative report for further detail. Plan Discharge Plan: Patient progressed appropriate throughout hospital. On date of discharge instructions were explained to the patientc she is to call our office with any questions or concerns including increasing pain, numbness, tingling, drainage, temperature > 101.5. Discharge plan was explained the planned along with patient's son who was in agreement with the current plan. Patient's instructions were read she verbalized understanding and on 09/23/17 she was found stable for discharge to home.
== END 2017-09-23 14:58 | disposition home health service (06) | DRG 494 ==
LOC: OROUT 05:54 → EDSTATUS 08:00 → 2N 12:15 → OROUT 12:15 → 4N 09-19 10:12 → 2N 09-19 10:12 → 4N 09-19 19:07 → OROUT 09-23 14:58 → 4N 09-23 14:58
PROVIDERS: ADMIT Orthopaedic Surgery; ATTEND Orthopaedic Surgery
PROC: 3E0F73Z Introduction of Anti-inflammatory into Respiratory Tract, Via Natural or Artificial Opening (ICD-10-PCS; 2017-09-17)
PROC: 0PSF04Z Reposition Right Humeral Shaft with Internal Fixation Device, Open Approach (ICD-10-PCS; principal; 2017-09-17 08:00)
DX: S42.471A Displaced transcondylar fracture of right humerus, initial encounter for closed fracture (principal); W01.0XXA Fall on same level from slipping, tripping and stumbling without subsequent striking against object, initial encounter; G89.18 Other acute postprocedural pain; Z96.652 Presence of left artificial knee joint; Z79.01 Long term (current) use of anticoagulants; Z79.899 Other long term (current) drug therapy; Z90.49 Acquired absence of other specified parts of digestive tract; Z90.710 Acquired absence of both cervix and uterus
CPT/HCPCS: 01744; 36415; 71020; 80048; 81001; 85025; 85027; 85610; 85730; 93005; 93010; 94799; C1713; C1769; G0378; G0379; G8978-GP; G8979-GP; G8987-GO; G8988-GO; J0131; J0690; J1170; J1741; J2250; J2270; J2405; J2704; J2795; J3010; J3490

== ENCOUNTER 2017-09-28 14:01 | Emergency (ER) | payer MEDICARE ==
--- NOTE | 2017-09-28 16:55 | ER Document Report ---
ED GI/ - General Chief Complaint: Urinary Problem Stated Complaint: ABDOMINAL/BLADDER PAIN Time Seen by Provider: 09/28/17 16:14 Mode of Arrival: Ambulatory Information source: Patient TRAVEL OUTSIDE OF THE [place] IN LAST 30 DAYS: No - HPI Patient complains to provider of: Dysuria Onset: Yesterday Timing/Duration: Intermittent Quality of pain: Achy, Cramping Severity at maximum: Moderate Severity in ED: Mild Location: Suprapubic Associated symptoms: Dysuria Notes: 09/28/17 18:28 Patient is an 82-year-old female presenting to the emergency room complaining of "bladder spasms", symptoms have been going on throughout the day today, she does report painful urination, as well as hematuria, she denies any fever, no nausea, vomiting or diarrhea, no injuries, no history of similar symptoms previously - Related Data Allergies/Adverse Reactions: hydrocodone bitartrate [From Vicodin] Allergy (Severe, Verified 09/28/17 14:07) unsure clavulanic acid [From Augmentin] Allergy (Verified 09/28/17 14:07) Past Medical History - General Information source: Patient - Social History Smoking Status: Never Smoker Chew tobacco use (# tins/day): No Frequency of alcohol use: Occasional Drug Abuse: None Family History: Reviewed & Not Pertinent Patient has suicidal ideation: No Patient has homicidal ideation: No - Past Medical History Cardiac Medical History: Reports: Hx Hypercholesterolemia, Hx Hypertension Denies: Hx Coronary Artery Disease, Hx Heart Attack Pulmonary Medical History: Denies: Hx Asthma, Hx Bronchitis, Hx COPD, Hx Pneumonia Neurological Medical History: Denies: Hx Cerebrovascular Accident, Hx Seizures Renal/ Medical History: Denies: Hx Peritoneal Dialysis Musculoskeltal Medical History: 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 Past Surgical History: Reports: Hx Cholecystectomy, Hx Hysterectomy, Hx Orthopedic Surgery - left tkr, right shoulder, feet, spinal fusion, Hx Tonsillectomy, Hx Tubal Ligation, Hx Vascular Surgery - cataract - Immunizations Hx Diphtheria, Pertussis, Tetanus Vaccination: Yes Hx Pneumococcal Vaccination: 11/11/04 Review of Systems - Review of Systems Constitutional: No symptoms reported EENT: No symptoms reported Cardiovascular: No symptoms reported Respiratory: No symptoms reported Gastrointestinal: No symptoms reported Genitourinary: See HPI, Burning, Dysuria, Hematuria, Pain Female Genitourinary: No symptoms reported Musculoskeletal: No symptoms reported Skin: No symptoms reported Hematologic/Lymphatic: No symptoms reported Neurological/Psychological: No symptoms reported -: Yes All other systems reviewed and negative Physical Exam - Vital signs Vitals: Temp Pulse Resp BP Pulse Ox 98.4 F 82 18 131/57 H 94 09/28/17 14:09 09/28/17 14:09 09/28/17 14:09 09/28/17 14:09 09/28/17 14:09 Interpretation: Normal - General General appearance: Appears well, Alert - HEENT Head: Normocephalic, Atraumatic Eyes: Normal Pupils: PERRL - Respiratory Respiratory status: No respiratory distress Chest status: Nontender Breath sounds: Normal Chest palpation: Normal - Cardiovascular Rhythm: Regular Heart sounds: Normal auscultation Murmur: No - Abdominal Inspection: Normal Distension: No distension Bowel sounds: Normal Tenderness: Tender - Suprapubic tenderness Organomegaly: No organomegaly - Back Back: Normal, Nontender - Extremities General upper extremity: Normal inspection, Nontender, Normal color, Normal ROM , Normal temperature General lower extremity: Normal inspection, Nontender, Normal color, Normal ROM , Normal temperature, Normal weight bearing. No: Abby's sign - Neurological Neuro grossly intact: Yes Cognition: Normal Orientation: AAOx4 [place] Coma Scale Eye Opening: Spontaneous [place] Coma Scale Verbal: Oriented [place] Coma Scale Motor: Obeys Commands [place] Coma Scale Total: 15 Speech: Normal Motor strength normal: LUE, RUE, LLE, RLE Sensory: Normal - Psychological Associated symptoms: Normal affect, Normal mood - Skin Skin Temperature: Warm Skin Moisture: Dry Skin Color: Normal Course - Re-evaluation Re-evalutation: 09/28/17 18:30 Symptoms consistent with urinary tract infection, urinalysis confirms this, patient's vital signs are stable, she is afebrile, therefore I opted not to do blood work today but instead place her on antibiotics, she was advised to follow -up with her primary care provider and return to the emergency room immediately if her symptoms worsen or fail to improve over the next few days on antibiotics , patient and family member at bedside acknowledge understanding and agreement with this plan - Vital Signs Vital signs: Temp Pulse Resp BP Pulse Ox 98.8 F 78 16 136/60 H 95 09/28/17 16:58 09/28/17 16:58 09/28/17 16:58 09/28/17 16:58 09/28/17 16:58 - Laboratory Laboratory results interpreted by me: 09/28/17 14:30 Urine Protein >=500 H Urine Blood MODERATE H Urine Nitrite POSITIVE H Ur Leukocyte Esterase LARGE H Urine Ascorbic Acid 20 H Discharge - Discharge Clinical Impression: Urinary tract infection Qualifiers: Urinary tract infection type: site unspecified Hematuria presence: with hematuria Qualified Code(s): N39.0 - Urinary tract infection, site not specified Condition: Stable Disposition: HOME, SELF-CARE Instructions: Cephalexin ([facility]), Urinary Anesthetic Agent ([facility]), Urinary Tract Infection ([facility]) Additional Instructions: Follow up with your primary care provider in one to 2 days. Return to the emergency room immediately if symptoms worsen or any additional concerns. Prescriptions: Cephalexin Monohydrate [Keflex 500 mg Capsule] 500 mg PO BID #20 capsule Phenazopyridine HCl [Pyridium 200 mg Tablet] 200 mg PO TID #15 tablet Referrals: BE STILL MD [Primary Care Provider] - Follow up as needed
[2017-09-28 16:58] VITALS: BP 136/60
[2017-09-28 17:10] LABS: APPEARANCE,URINE CLOUDY; BILIRUBIN,URINE NEGATIVE (NEGATIVE); GLUCOSE, URINE NEGATIVE (NEGATIVE); KETONES,URINE NEGATIVE (NEGATIVE); LEUKOCYTE ESTERASE,URINE LARGE (NEGATIVE); NITRITE,URINE POSITIVE (NEGATIVE); PROTEIN,URINE >=500 mg/dL (NEGATIVE); TRIPLE PHOSPHATE CRYSTAL,URINE TOO NUMEROUS TO CNT /HPF; URINE SPECIFIC GRAVITY 1.023; UROBILINOGEN,URINE NEGATIVE mg/dL (<2.0)
[2017-09-28] MEDS ORDERED: CEPHALEXIN 500 MG CAPSULE PO ONE (17:14)
[2017-09-28] MEDS ORDERED: PHENAZOPYRIDINE HCL 200 MG TABLET PO ONE (17:14)
== END 2017-09-28 17:43 | disposition home or self-care (01) ==
LOC: ER 14:01
DX: N39.0 Urinary tract infection, site not specified (principal); R10.9 Unspecified abdominal pain; R39.89 Other symptoms and signs involving the genitourinary system; N32.89 Other specified disorders of bladder
CPT/HCPCS: 99284; 87086; 87088; 81001; 87186; A9270 ×2; J3490

== ENCOUNTER → 2017-10-08 | Outpatient (CLI) | payer MEDICARE ==
[2017-10-08 14:01] LABS: HEMOGLOBIN 10.4 g/dL (12.0-15.5); HGB HCT DIFFERENCE -0.8; MEAN CORPUSCULAR HGB CONC 32.4 g/dL (32.0-36.0); MEAN CORPUSCULAR VOLUME 86 fl (80-97); RED CELL DISTRIBUTION WIDTH 16.6 % (11.5-14.0)
[2017-10-08 15:00] LABS: ERYTHROCYTE SEDIMENTATION RATE 45 mm/hr (0-30)
== END ==
LOC: OD 11:53
PROVIDERS: ATTEND Family Medicine
DX: M25.521 Pain in right elbow (principal)
CPT/HCPCS: 36415; 85027; 85652; 86140

== ENCOUNTER 2020-11-09 18:32 | Emergency (ER) | payer MEDICARE, OTHER ==
--- NOTE | 2020-11-09 19:30 | ER Document Report ---
ED Medical Screen (RME) - General Chief Complaint: Rectal Pain Stated Complaint: RECTAL PAIN Time Seen by Provider: 11/09/20 19:24 Primary Care Provider: LATESHA ABAD DO [Primary Care Provider] - Follow up as needed Mode of Arrival: Wheelchair Information source: Patient, Relative Notes: Patient is an 85-year-old female was brought into the emergency room by family with complaints that her hemorrhoids are getting bad. They stated that the home health nurse said that it are internal hemorrhoids that are coming out and are very large. Patient states that they are getting very uncomfortable when she absolutely is constipated and not taking any type of fiber to get it stopped. Patient and family state that she is eating and drinking well "average for her age. She has no other complaints or problems at this time. She denies any shortness of breath chest pain. Physical examination: Patient is a frail-appearing 85-year-old female who is in no distress on examination this evening. Cardiac: Patient has a bradycardic rate of 52 bpm on monitor no murmurs were auscultated at this time. Lungs: Bilateral breath sounds clear to auscultation no rhonchi rales or wheeze noted. Abdomen bowel sounds are present all 4 quads nontender to palpate. Patient is in a wheelchair with padding unable to do a rectal viewing in the triage so she will need to be seen by another provider in the back is see the extent of the size of the hemorrhoids. I have greeted and performed a rapid initial assessment of this patient. A comprehensive ED assessment and evaluation of the patient, analysis of test results and completion of the medical decision making process will be conducted by additional ED providers. Dictation of this chart was performed using voice recognition software; therefore, there may be some unintended grammatical errors. TRAVEL OUTSIDE OF THE [place] IN LAST 30 DAYS: No - Related Data Allergies/Adverse Reactions: hydrocodone bitartrate [From Vicodin] Allergy (Severe, Verified 09/28/17 14:07) unsure clavulanic acid [From Augmentin] Allergy (Verified 09/28/17 14:07) Past Medical History - Past Medical History Cardiac Medical History: Reports: Hx Hypercholesterolemia, Hx Hypertension Denies: Hx Coronary Artery Disease, Hx Heart Attack Pulmonary Medical History: Denies: Hx Asthma, Hx Bronchitis, Hx COPD, Hx Pneumonia Neurological Medical History: Denies: Hx Cerebrovascular Accident, Hx Seizures Renal/ Medical History: Denies: Hx Peritoneal Dialysis Musculoskeltal Medical History: 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 Past Surgical History: Reports: Hx Cholecystectomy, Hx Hysterectomy, Hx Orthopedic Surgery - left tkr, right shoulder, feet, spinal fusion, Hx Tonsill ectomy, Hx Tubal Ligation, Hx Vascular Surgery - cataract - Immunizations Hx Diphtheria, Pertussis, Tetanus Vaccination: Yes Physical Exam - Vital signs Vitals: Temp Pulse Resp BP Pulse Ox 98.3 F 52 L 16 126/75 H 96 11/09/20 18:59 11/09/20 18:59 11/09/20 18:59 11/09/20 18:59 11/09/20 18:59 Course - Vital Signs Vital signs: Temp Pulse Resp BP Pulse Ox 98.3 F 52 L 16 126/75 H 96 11/09/20 18:59 11/09/20 18:59 11/09/20 18:59 11/09/20 18:59 11/09/20 18:59 Doctor's Discharge - Discharge Referrals: LATESHA ABAD DO [Primary Care Provider] - Follow up as needed
--- NOTE | 2020-11-10 04:47 | ER Document Report ---
ED General - General Chief Complaint: Hemorrhoids Stated Complaint: RECTAL PAIN Time Seen by Provider: 11/09/20 19:24 Primary Care Provider: LATESHA ABAD DO [Primary Care Provider] - Follow up as needed Mode of Arrival: Wheelchair Information source: Patient, Relative Cannot obtain history due to: Dementia Notes: Patient presents to the ER for evaluation of rectal pain times several days. According to the son at the bedside, the patient has home health who state that her hemorrhoids have been bulging for several days. Patient states she is able to have bowel movements without difficulty. She is not currently constipated. She denies fever. She denies nausea or vomiting. She denies change in appetite. Nursing notes reviewed and past medical, social, and family histories reviewed and validated. TRAVEL OUTSIDE OF THE [place] IN LAST 30 DAYS: No - Related Data Allergies/Adverse Reactions: hydrocodone bitartrate [From Vicodin] Allergy (Severe, Verified 09/28/17 14:07) unsure clavulanic acid [From Augmentin] Allergy (Verified 09/28/17 14:07) Past Medical History - General Information source: Patient, Relative Cannot obtain history due to: Dementia - Social History Smoking Status: Never Smoker Chew tobacco use (# tins/day): No Frequency of alcohol use: None Drug Abuse: None Lives with: Family Family History: Reviewed & Not Pertinent Patient has suicidal ideation: No Patient has homicidal ideation: No - Past Medical History Cardiac Medical History: Reports: Hx Hypercholesterolemia, Hx Hypertension Denies: Hx Coronary Artery Disease, Hx Heart Attack Pulmonary Medical History: Denies: Hx Asthma, Hx Bronchitis, Hx COPD, Hx Pneumonia EENT Medical History: Reports: None Neurological Medical History: Denies: Hx Cerebrovascular Accident, Hx Seizures Endocrine Medical History: Reports: None Renal/ Medical History: Reports: None. Denies: Hx Peritoneal Dialysis Malignancy Medical History: Reports: None GI Medical History: Reports: None Musculoskeletal Medical History: 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 Skin Medical History: Reports None Psychiatric Medical History: Reports: Hx Dementia Traumatic Medical History: Reports: None Infectious Medical History: Reports: None Past Surgical History: Reports: Hx Cholecystectomy, Hx Hysterectomy, Hx Orthopedic Surgery - left tkr, right shoulder, feet, spinal fusion, Hx Tonsillectomy, Hx Tubal Ligation, Hx Vascular Surgery - cataract - Immunizations Immunizations up to date: Yes Hx Diphtheria, Pertussis, Tetanus Vaccination: Yes Hx Pneumococcal Vaccination: 11/11/04 Review of Systems - Review of Systems Notes: Constitutional: Negative for fever. HENT: Negative for sore throat. Eyes: Negative for visual changes. Cardiovascular: Negative for chest pain. Respiratory: Negative for shortness of breath. Gastrointestinal: Negative for abdominal pain, vomiting or diarrhea. Positive for rectal pain. Genitourinary: Negative for dysuria. Musculoskeletal: Negative for back pain. Skin: Negative for rash. Neurological: Negative for headaches, weakness or numbness. 10 point ROS negative except as marked above and in HPI. Physical Exam - Vital signs Vitals: Temp Pulse Resp BP Pulse Ox 98.3 F 52 L 16 126/75 H 96 11/09/20 18:59 11/09/20 18:59 11/09/20 18:59 11/09/20 18:59 11/09/20 18:59 - Notes Notes: CONSTITUTIONAL: Well appearing. No acute distress. SKIN: Warm, dry, and intact without rash EYES: Extraocular movements are grossly intact, clear conjunctiva HENT: Normocephalic, atraumatic, moist mucus membranes NECK: No obvious swelling, normal range of motion PULMONARY: Normal chest rise and fall. Breath sounds clear and equal bilaterally. No respiratory distress or stridor CARDIOVASCULAR: Regular rate. No murmurs, rubs, gallops. Distal extremities are warm and well perfused. ABDOMINAL: Soft, nontender. There is no significant rectal tenderness noted. There is a small internal hemorrhoid. There is no obvious bleeding on the exam. NEUROLOGIC: Normal speech, moves all extremities. MUSCULOSKELETAL: No gross deformities, atraumatic PSYCHIATRIC: Normal mood and affect Course - Vital Signs Vital signs: Temp Pulse Resp BP Pulse Ox 98.2 F 48 L 22 H 155/85 H 97 11/09/20 23:50 11/09/20 23:50 11/10/20 04:04 11/10/20 04:04 11/10/20 04:04 - Laboratory Results Critical Laboratory Results Reviewed: No Critical Results - Radiology Results Critical Radiology Results Reviewed: No Critical Results Discharge - Discharge Clinical Impression: Acute hemorrhoid Condition: Stable Disposition: HOME, SELF-CARE Instructions: HC Hemorrhoid Cream ([facility]) Prescriptions: Hydrocortisone [Anusol-Hc] 30 gm RC BID #30 cream.gm. Referrals: POLLO,LATESHA A, DO [Primary Care Provider] - Follow up as needed
[2020-11-10 05:18] VITALS: BP 141/85
== END 2020-11-10 05:18 | disposition home or self-care (01) ==
LOC: ER 18:32
DX: K64.8 Other hemorrhoids (principal); F03.90 Unspecified dementia, unspecified severity, without behavioral disturbance, psychotic disturbance, mood disturbance, and anxiety; Z88.6 Allergy status to analgesic agent; Z88.5 Allergy status to narcotic agent; Z88.0 Allergy status to penicillin; I10 Essential (primary) hypertension
CPT/HCPCS: 99284

== ENCOUNTER 2020-11-12 13:53 | Emergency (ER) | payer MEDICARE ==
--- NOTE | 2020-11-12 15:26 | ER Document Report ---
ED Medical Screen (RME) - General Chief Complaint: Vaginal Bleeding Stated Complaint: VAGINAL BLEEDING MASS Time Seen by Provider: 11/12/20 15:01 Primary Care Provider: LATESHA ABAD DO [ACTIVE STAFF] - Follow up as needed Notes: Patient presents complaining of a rectal mass that has prolapsed and is bleeding. Patient states symptoms started today and she is having rectal pain. Patient denies any other abnormal bleeding or bruising. Patient denies any lightheadedness or dizziness. I have greeted and performed a rapid initial assessment of this patient. A comprehensive ED assessment and evaluation of the patient, analysis of test results and completion of the medical decision making process will be conducted by additional ED providers. TRAVEL OUTSIDE OF THE [place] IN LAST 30 DAYS: No - Related Data Allergies/Adverse Reactions: hydrocodone bitartrate [From Vicodin] Allergy (Severe, Verified 09/28/17 14:07) unsure clavulanic acid [From Augmentin] Allergy (Verified 09/28/17 14:07) Past Medical History - Past Medical History Cardiac Medical History: Reports: Hx Hypercholesterolemia, Hx Hypertension Denies: Hx Coronary Artery Disease, Hx Heart Attack Pulmonary Medical History: Denies: Hx Asthma, Hx Bronchitis, Hx COPD, Hx Pneumonia Neurological Medical History: Denies: Hx Cerebrovascular Accident, Hx Seizures Renal/ Medical History: Denies: Hx Peritoneal Dialysis Musculoskeltal Medical History: 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 Psychiatric Medical History: Reports: Hx Dementia Past Surgical History: Reports: Hx Cholecystectomy, Hx Hysterectomy, Hx Orthopedic Surgery - left tkr, right shoulder, feet, spinal fusion, Hx Tonsillectomy, Hx Tubal Ligation, Hx Vascular Surgery - cataract - Immunizations Immunizations up to date: Yes Hx Diphtheria, Pertussis, Tetanus Vaccination: Yes Physical Exam - Vital signs Vitals: Temp Pulse Resp BP Pulse Ox 98.3 F 95 18 148/82 H 95 11/12/20 14:26 11/12/20 14:26 11/12/20 14:26 11/12/20 14:26 11/12/20 14:26 - General General appearance: Alert In distress: Mild - Abdominal Tenderness: Nontender Course - Re-evaluation Re-evalutation: 11/12/20 15:08 Charge nurse advised of patient status - Vital Signs Vital signs: Temp Pulse Resp BP Pulse Ox 98.5 F 87 16 137/87 H 95 11/12/20 23:06 11/12/20 23:06 11/12/20 23:06 11/12/20 23:06 11/12/20 23:06 - Laboratory Results Result Diagrams: 11/12/20 16:23 11/12/20 16:23 Laboratory Results Interpreted: 11/12/20 11/12/20 11/12/20 16:23 16:23 20:20 WBC 12.5 H RDW 14.4 H Lymph % (Auto) 10.0 L Absolute Neuts (auto) 9.7 H Carbon Dioxide 31 H Anion Gap 4 L Urine Ketones 20 H Doctor's Discharge - Discharge Clinical Impression: Rectal prolapse, Proctitis Condition: Stable Disposition: HOME, SELF-CARE Additional Instructions: You had a rectal prolapse today requiring reduction in the emergency department. Also noted is that there is inflammation of your rectosigmoid colon area. We will be prescribing you a Proctofoam administration twice a day. As well as we are prescribing you Colace as a stool softener and Metamucil to take to control soft bowel movements. In addition we are asking that you begin some pelvic floor exercises call the Kegel maneuvers please read about that and have your family member assist you in performing Kegel maneuvers. Please follow-up with your primary care provider thank you return to the emergency department if there is any further problems. Prescriptions: Docusate Sodium [Colace 100 mg Capsule] 100 mg PO DAILY #30 capsule Hydrocortisone/Pramoxine [Proctofoam-Hc Foam] 10 gm RC BID 10 Days #1 bottle Referrals: LATESHA ABAD DO [ACTIVE STAFF] - Follow up as needed
[2020-11-12 16:47] LABS: ABSOLUTE BASOPHILS # (AUTO) 0.1 10^3/uL (0.0-0.2); ABSOLUTE EOSINOPHILS # (AUTO) 0.1 10^3/uL (0.0-0.6); ABSOLUTE LYMPHOCYTES (AUTO) 1.2 10^3/uL (0.5-4.7); ABSOLUTE MONOCYTES (AUTO) 1.4 10^3/uL (0.1-1.4); ABSOLUTE NEUT (AUTO) 9.7 10^3/uL (1.7-8.2); BASOPHILS % (AUTO) 0.7 % (0-2); EOSINOPHILS % (AUTO) 0.9 % (0-6); HEMATOCRIT 40.7 % (36.0-47.0); HEMOGLOBIN 13.8 g/dL (12.0-15.5); MEAN CORPUSCULAR HEMOGLOBIN 29.2 pg (27.0-33.4); MEAN CORPUSCULAR HGB CONC 33.9 g/dL (32.0-36.0); MEAN CORPUSCULAR VOLUME 86 fl (80-97); PLATELET COUNT 415 10^3/uL (150-450); RED BLOOD COUNT 4.71 10^6/uL (3.72-5.28); RED CELL DISTRIBUTION WIDTH 14.4 % (11.5-14.0); SEGMENTED NEUTROPHILS % (AUTO) 77.4 % (42-78); TOTAL CELLS COUNTED % (AUTO) 100 %; WHITE BLOOD COUNT 12.5 10^3/uL (4.0-10.5)
[2020-11-12 16:55] LABS: INTERNATIONAL RATION (INR) 0.97; PROTHROMBIN TIME 13.1 SEC (11.4-15.4)
[2020-11-12 17:09] LABS: ALBUMIN 3.6 g/dL (3.5-5.0); ALKALINE PHOSPHATASE 92 U/L (38-126); ASPARTATE AMINO TRANSFERASE 30 U/L (14-36); BILIRUBIN,DIRECT 0.1 mg/dL (0.0-0.4); BLOOD UREA NITROGEN 18 mg/dL (7-20); CALCIUM 9.3 mg/dL (8.4-10.2); CARBON DIOXIDE 31 mmol/L (22-30); CHLORIDE 104 mmol/L (98-107); GLUCOSE 103 mg/dL (75-110); TOTAL PROTEIN 6.3 g/dL (6.3-8.2)
[2020-11-12 17:10] LABS: ANION GAP 4 (5-19)
[2020-11-12] MEDS ORDERED: NORMAL SALINE 500 ML IV ONE (19:15)
--- NOTE | 2020-11-12 20:02 | RADIOLOGY REPORT (SQ) ---
EXAM DESCRIPTION: ACUTE ABDOMEN SERIES IMAGES COMPLETED DATE/TIME: 11/12/2020 4:51 pm REASON FOR STUDY: rectal prolapse/constipation. COMPARISON: Single-view chest 09/16/2017 and abdominal series 7 12/10/2014. NUMBER OF VIEWS: Three views. TECHNIQUE: Frontal chest, supine abdomen and upright/decubitus abdomen radiographic images acquired. LIMITATIONS: None. FINDINGS: CHEST: Elevation of the right hemidiaphragm. Hiatal hernia. Linear opacities in the righ t lung base probably representing scarring or atelectasis. No pleural effusion or pneumothorax. Rig ht shoulder prosthesis and fixation hardware in the right elbow. FREE AIR: None. No abnormal gas collections. BOWEL GAS PATTERN: Nonspecific nonobstructive bowel gas pattern. No gas-filled dilated small bowel l oops identified. At least moderate stool in the colon. CALCIFICATIONS: Prominent costochondral calcifications. No other suspicious calcifications identifie d. HARDWARE: Fixation hardware in the lumbosacral spine. SOFT TISSUES: No gross mass or suggestion of organomegaly. BONES: Osseous demineralization. OTHER: No other significant finding. IMPRESSION: 1. Nonobstructive bowel gas pattern with at least moderate stool in the colon. 2. Linear opacities in the right lung base probably representing scarring or atelectasis. TECHNICAL DOCUMENTATION: JOB ID: [id number] 2010 [employer]- All Rights Reserved Reading location - IP/workstation name: [email or web address]
[2020-11-12 20:39] LABS: APPEARANCE,URINE CLEAR; BILIRUBIN,URINE NEGATIVE (NEGATIVE); COLOR,URINE YELLOW; GLUCOSE, URINE NEGATIVE (NEGATIVE); KETONES,URINE 20 mg/dL (NEGATIVE); LEUKOCYTE ESTERASE,URINE NEGATIVE (NEGATIVE); NITRITE,URINE NEGATIVE (NEGATIVE); PROTEIN,URINE NEGATIVE (NEGATIVE); URINE SPECIFIC GRAVITY 1.016; UROBILINOGEN,URINE NEGATIVE mg/dL (<2.0)
--- NOTE | 2020-11-12 22:02 | RADIOLOGY REPORT (SQ) ---
CT ABDOMEN PELVIS WITH IV CONTRAST HISTORY: Rectal bleeding. COMPARISON: None. TECHNIQUE: CT scan of the abdomen and pelvis was performed with IV contrast. This exam was performed according to our departmental dose-optimization program, which includes automated exposure control, adjustment of the mA and/or kV according to patient size and/or use of iterative reconstruction technique. FINDINGS: There is mild scarring in the right lower lobe but without pleural or pericardial effusions. There is a moderate-sized sliding hiatal hernia. There has been a prior cholecystectomy and hysterectomy. The liver, spleen, pancreas, adrenal glands, and kidneys are unremarkable. No hydronephrosis or urinary stones are seen. There is diffuse wall thickening with submucosal edema and hyperenhancement involving the rectum with surrounding perirectal stranding. The remainder of the small and large bowel are unremarkable without evidence of obstruction. Appendix is not clearly visualized. No free air or free fluid is evident. There is fixation hardware throughout the lumbosacral spine. The aorta is normal caliber and contains atherosclerotic calcifications. No abnormal body wall hernia is evident. IMPRESSION: Findings consistent with acute proctitis, of infectious or inflammatory origin.
--- NOTE | 2020-11-12 22:36 | RADIOLOGY REPORT (SQ) ---
Ultrasound pelvis on 11/12/2020 at 9:42 PM CLINICAL INDICATION: Pelvic pain COMPARISON: CT from 11/12/2020 FINDINGS: Multiple sonographic images are obtained throughout the pelvis by transabdominal approach only, both transverse and sagittal images are obtained. Neither ovary is visualized. No adnexal mass or fluid collection is noted. No free fluid is noted. What is measured as the uterus by the technologist in correlation with the CT is most consistent with a marked rectal thickening. On the CT a definite uterus is not visualized and is either very atrophic or surgically absent, favor the patient to be status post hysterectomy in correlation with the recent CT. IMPRESSION: As above the patient is favored to be status post hysterectomy with no gross abnormality noted on this exam.
--- NOTE | 2020-11-12 22:43 | ER Document Report ---
Entered by NOREEN LAMAR SCRIBE 11/12/20 1829 Acting as scribe for:PANCHITO BASURTO MD ED General - General Chief Complaint: Rectal Bleeding Stated Complaint: VAGINAL BLEEDING MASS Time Seen by Provider: 11/12/20 15:01 Primary Care Provider: LATESHA ABAD DO [ACTIVE STAFF] - Follow up as needed Information source: Patient Notes: This 85 year old female patient presents to the emergency department today with complaints of a rectal mass that has prolapsed, with pain and bleeding. Patient states this has worsened the past couple of weeks, was seen in the ED x3 days ago, and diagnosed with hemorrhoids. Patient reports states her last bowel movement was in the ED and states her stool is soft, denying trouble with bowel movement. Denies trouble with urination, burning, discomfort, or frequency. Patient reports pelvic pain. TRAVEL OUTSIDE OF THE [place] IN LAST 30 DAYS: No - Related Data Allergies/Adverse Reactions: hydrocodone bitartrate [From Vicodin] Allergy (Severe, Verified 09/28/17 14:07) unsure clavulanic acid [From Augmentin] Allergy (Verified 09/28/17 14:07) Past Medical History - General Information source: Patient, [facility] Records - Social History Smoking Status: Unknown if Ever Smoked Family History: Reviewed & Not Pertinent Patient has homicidal ideation: No - Past Medical History Cardiac Medical History: Reports: Hx Hypercholesterolemia, Hx Hypertension Musculoskeletal Medical History: 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 Psychiatric Medical History: Reports: Hx Dementia Past Surgical History: Reports: Hx Cholecystectomy, Hx Hysterectomy, Hx Orthopedic Surgery - left tkr, right shoulder, feet, spinal fusion, Hx Tonsillectomy, Hx Tubal Ligation, Hx Vascular Surgery - cataract - Immunizations Immunizations up to date: Yes Hx Diphtheria, Pertussis, Tetanus Vaccination: Yes Hx Pneumococcal Vaccination: 11/11/04 Review of Systems - Review of Systems Constitutional: No symptoms reported EENT: No symptoms reported Cardiovascular: No symptoms reported Respiratory: No symptoms reported Gastrointestinal: See HPI, Rectal bleeding, Last bowel movement - today, Other - Rectal prolapse Genitourinary: See HPI, Other - pelvic pain. denies: Burning, Dysuria, Frequency Female Genitourinary: No symptoms reported Musculoskeletal: No symptoms reported Skin: No symptoms reported Hematologic/Lymphatic: No symptoms reported Neurological/Psychological: No symptoms reported -: Yes All other systems reviewed and negative Physical Exam - Vital signs Vitals: Temp Pulse Resp BP Pulse Ox 98.3 F 95 18 148/82 H 95 11/12/20 14:26 11/12/20 14:26 11/12/20 14:26 11/12/20 14:26 11/12/20 14:26 - General General appearance: Alert - HEENT Head: Normocephalic, Atraumatic Eyes: Normal Pupils: PERRL - Respiratory Respiratory status: No respiratory distress Chest status: Nontender Breath sounds: Normal Chest palpation: Normal - Cardiovascular Rhythm: Regular Heart sounds: Normal auscultation, S1 appreciated, S2 appreciated Murmur: No - Abdominal Inspection: Normal, Other - soft Distension: No distension Bowel sounds: Normal Tenderness: Nontender - Rectal Notes: 14cm by 20 cm prolapsed rectum. [place] and healthy mucosa of the colon, vascularly intact. Successful manual reduction of the prolapsed rectum with firm and gentle force. - Extremities General upper extremity: Normal inspection. No: Edema General lower extremity: Normal inspection. No: Edema - Neurological Neuro grossly intact: Yes Cognition: Normal Orientation: AAOx4 Speech: Normal Sensory: Normal - Psychological Associated symptoms: Normal affect, Normal mood - Skin Skin Temperature: Warm Skin Moisture: Dry Skin Color: Normal Course - Re-evaluation Re-evalutation: 11/14/20 19:06 Patient presents in pelvic rectal strict distress with a prolapsed rectosigmoid colon.' - Vital Signs Vital signs: Temp Pulse Resp BP Pulse Ox 98.5 F 87 16 137/87 H 95 11/12/20 23:06 11/12/20 23:06 11/12/20 23:06 11/12/20 23:06 11/12/20 23:06 11/14/20 19:07 Vital signs stable. - Laboratory Results Result Diagrams: 11/12/20 16:23 11/12/20 16:23 Laboratory Results Interpreted: 11/12/20 11/12/20 11/12/20 16:23 16:23 20:20 WBC 12.5 H RDW 14.4 H Lymph % (Auto) 10.0 L Absolute Neuts (auto) 9.7 H Carbon Dioxide 31 H Anion Gap 4 L Urine Ketones 20 H 11/14/20 19:07 No acute critical labs. Patient has white blood cell count of 12.5. 11/14/20 19:08 Labs- Entire Visit 11/12/20 11/12/20 11/12/20 16:23 16:23 16:23 WBC 12.5 H RBC 4.71 Hgb 13.8 Hct 40.7 MCV 86 MCH 29.2 MCHC 33.9 RDW 14.4 H Plt Count 415 Lymph % (Auto) 10.0 L [place] % (Auto) 11.0 Eos % (Auto) 0.9 Baso % (Auto) 0.7 Absolute Neuts (auto) 9.7 H Absolute Lymphs (auto) 1.2 Absolute Monos (auto) 1.4 Absolute Eos (auto) 0.1 Absolute Basos (auto) 0.1 Seg Neutrophils % 77.4 PT 13.1 INR 0.97 APTT 31.0 Sodium 138.5 Potassium 4.0 Chloride 104 Carbon Dioxide 31 H Anion Gap 4 L BUN 18 Creatinine 0.63 Est GFR ( Amer) > 60 Est GFR (MDRD) Non-Af > 60 Glucose 103 Lactic Acid Calcium 9.3 Total Bilirubin 1.0 Direct Bilirubin 0.1 Neonat Total Bilirubin Not Reportable Neonat Direct Bilirubin Not Reportable Neonat Indirect Bili Not Reportable AST 30 ALT 11 Alkaline Phosphatase 92 Total Protein 6.3 Albumin 3.6 Lipase Urine Color Urine Appearance Urine pH Ur Specific [place] Urine Protein Urine Glucose (UA) Urine Ketones Urine Blood Urine Nitrite Urine Bilirubin Urine Urobilinogen Ur Leukocyte Esterase Urine WBC (Auto) Urine RBC (Auto) Squamous Epi Cells Auto Urine Mucus (Auto) Urine Ascorbic Acid Blood Type Antibody Screen 11/12/20 11/12/20 11/12/20 16:23 16:23 20:05 WBC RBC Hgb Hct MCV MCH MCHC RDW Plt Count Lymph % (Auto) [place] % (Auto) Eos % (Auto) Baso % (Auto) Absolute Neuts (auto) Absolute Lymphs (auto) Absolute Monos (auto) Absolute Eos (auto) Absolute Basos (auto) Seg Neutrophils % PT INR APTT Sodium Potassium Chloride Carbon Dioxide Anion Gap BUN Creatinine Est GFR ( Amer) Est GFR (MDRD) Non-Af Glucose Lactic Acid 1.0 Calcium Total Bilirubin Direct Bilirubin Neonat Total Bilirubin Neonat Direct Bilirubin Neonat Indirect Bili AST ALT Alkaline Phosphatase Total Protein Albumin Lipase 54.7 Urine Color Urine Appearance Urine pH Ur Specific [place] Urine Protein Urine Glucose (UA) Urine Ketones Urine Blood Urine Nitrite Urine Bilirubin Urine Urobilinogen Ur Leukocyte Esterase Urine WBC (Auto) Urine RBC (Auto) Squamous Epi Cells Auto Urine Mucus (Auto) Urine Ascorbic Acid Blood Type O NEGATIVE Antibody Screen NEGATIVE 11/12/20 20:20 WBC RBC Hgb Hct MCV MCH MCHC RDW Plt Count Lymph % (Auto) [place] % (Auto) Eos % (Auto) Baso % (Auto) Absolute Neuts (auto) Absolute Lymphs (auto) Absolute Monos (auto) Absolute Eos (auto) Absolute Basos (auto) Seg Neutrophils % PT INR APTT Sodium Potassium Chloride Carbon Dioxide Anion Gap BUN Creatinine Est GFR ( Amer) Est GFR (MDRD) Non-Af Glucose Lactic Acid Calcium Total Bilirubin Direct Bilirubin Neonat Total Bilirubin Neonat Direct Bilirubin Neonat Indirect Bili AST ALT Alkaline Phosphatase Total Protein Albumin Lipase Urine Color YELLOW Urine Appearance CLEAR Urine pH 7.0 Ur Specific [place] 1.016 Urine Protein NEGATIVE Urine Glucose (UA) NEGATIVE Urine Ketones 20 H Urine Blood NEGATIVE Urine Nitrite NEGATIVE Urine Bilirubin NEGATIVE Urine Urobilinogen NEGATIVE Ur Leukocyte Esterase NEGATIVE Urine WBC (Auto) 3 Urine RBC (Auto) 3 Squamous Epi Cells Auto <1 Urine Mucus (Auto) RARE Urine Ascorbic Acid NEGATIVE Blood Type Antibody Screen Critical Laboratory Results Reviewed: No Critical Results - Radiology Results Radiology Results Interpreted: 11/14/20 19:08 Acute Abdomen Series 11/12/20 19:12 IMPRESSION: 1. Nonobstructive bowel gas pattern with at least moderate stool in the colon. 2. Linear opacities in the right lung base probably representing scarring or atelectasis. Abdomen/Pelvis CT 11/12/20 19:36 IMPRESSION: Findings consistent with acute proctitis, of infectious or inflammatory origin. Pelvis Ultrasound 11/12/20 19:37 IMPRESSION: As above the patient is favored to be status post hysterectomy with no gross abnormality noted on this exam. Abdomen pelvis CT shows findings consistent with acute proctitis either infectious or inflammatory. Acute abdominal series shows nonobstructive bowel gas pattern with a moderate amount of stool in colon linear opacities in the lung base representing scarring or atelectasis. Pelvic ultrasound shows evidence of a hysterectomy with no gross abnormality otherwise noted on exam. Critical Radiology Results Reviewed: No Critical Results Discharge - Discharge Clinical Impression: Rectal prolapse, Proctitis Condition: Stable Disposition: HOME, SELF-CARE Additional Instructions: You had a rectal prolapse today requiring reduction in the emergency department. Also noted is that there is inflammation of your rectosigmoid colon area. We will be prescribing you a Proctofoam administration twice a day. As well as we are prescribing you Colace as a stool softener and Metamucil to take to control soft bowel movements. In addition we are asking that you begin some pelvic floor exercises call the Kegel maneuvers please read about that and have your family member assist you in performing Kegel maneuvers. Please follow-up with your primary care provider thank you return to the emergency department if there is any further problems. Prescriptions: Docusate Sodium [Colace 100 mg Capsule] 100 mg PO DAILY #30 capsule Hydrocortisone/Pramoxine [Proctofoam-Hc Foam] 10 gm RC BID 10 Days #1 bottle Referrals: LATESHA ABAD, [ACTIVE STAFF] - Follow up as needed I personally performed the services described in the documentation, reviewed and edited the documentation which was dictated to the scribe in my presence, and it accurately records my words and actions.
[2020-11-12 23:19] VITALS: BP 137/87
== END 2020-11-12 23:20 | disposition home or self-care (01) ==
LOC: ER 13:53
DX: K62.2 Anal prolapse (principal); K62.89 Other specified diseases of anus and rectum; K62.5 Hemorrhage of anus and rectum; R10.2 Pelvic and perineal pain; E78.00 Pure hypercholesterolemia, unspecified; I10 Essential (primary) hypertension; F03.90 Unspecified dementia, unspecified severity, without behavioral disturbance, psychotic disturbance, mood disturbance, and anxiety; Z90.49 Acquired absence of other specified parts of digestive tract; Z90.710 Acquired absence of both cervix and uterus
CPT/HCPCS: 99285; 96360; 86900; 86901; 36415; 86850; 83605; 83690; 85025; 85610; 85730; 80053; 81001; 74022; 76856; 93976; 74177; J7040